=== PATIENT | female | born 1960 | race Caucasian/White ===

== ENCOUNTER 2018-03-09 17:37 | Inpatient (IN) | payer OTHER ==
[~2018-03-09] VITALS: Ht 170.2 cm; Wt 67.4 kg
--- NOTE | 2018-03-09 17:50 | PD ---
HPI Chief Complaint: Psychiatric Symptoms Time Seen by Provider: 17:46 Travel History International Travel<30 days: No Contact w/Intl Traveler<30days: No History of Present Illness HPI 57 YO F presents to the ED under Eli Act for psychiatric evaluation. According to the Eli act paperwork the patient has been taking her medications inconsistently, has been hallucinating and made a suicidal threat. On presentation the patient is calm and cooperative. She denies any suicidal ideation. She denies auditory or visual hallucinations. She endorses compliance with her daily medications. She does state that she was no longer to able to afford Cymbalta and has recently begun taking Zoloft. She endorses psychiatric diagnosis of bipolar disorder.She has never been under Eli act. She states that she has never been admitted to a psychiatric hospital. She denies any previous suicide attempts. From a medical standpoint she has no somatic complaints. She has a history of hypertension, endorses compliance with her medications. She is a current smoker. She denies illicit drug use. She endorses occasional alcohol use. [facility] Social History Tobacco Use: Yes Allergies-Medications (Allergen,Severity, Reaction): Coded Allergies: No Known Allergies (Unverified , 03/09/18) Review of Systems Except as stated in HPI: all other systems reviewed are Neg Physical Exam Narrative GENERAL: Well-nourished, well-developed white female no acute distress. PSYCH: Calm, cooperative. Does not appear to be responding to internal stimuli. SKIN: Focused skin assessment warm/dry. HEAD: Normocephalic. EYES: No scleral icterus. No injection or drainage. NECK: Supple, trachea midline. No JVD or lymphadenopathy. CARDIOVASCULAR: Regular rate and rhythm without murmurs, gallops, or rubs. RESPIRATORY: Breath sounds clear and equal bilaterally. No accessory muscle use. GASTROINTESTINAL: Abdomen soft, non-tender, nondistended. Active bowel sounds. MUSCULOSKELETAL: No cyanosis, or edema. BACK: Nontender without obvious deformity. No CVA tenderness. Data Data Last Documented VS Vital Signs Date Time Temp Pulse Resp B/P (MAP) Pulse Ox O2 Delivery O2 Flow Rate FiO2 03/09/18 19:08 98.2 75 18 140/73 (95) 97 Room Air Orders Orders Complete Blood Count With Diff (03/09/18 17:46) Comprehensive Metabolic Panel (03/09/18 17:46) Thyroid Stimulating Hormone (03/09/18 17:46) Urinalysis - C+S If Indicated (03/09/18 17:46) Psych Screen (03/09/18 17:46) Drug Screen, Random Urine (03/09/18 17:46) Alcohol (Ethanol) (03/09/18 17:46) Act Partial Throm Time (Ptt) (03/09/18 17:53) Prothrombin Time / Inr (Pt) (03/09/18 17:53) Urine Culture (03/09/18 17:35) Nitrofurantoin Monohyd Macrocr (Macrobid (03/09/18 21:00) Labs Laboratory Tests Test 03/09/18 17:35 03/09/18 17:55 Urine Color YELLOW Urine Turbidity CLOUDY Urine pH 5.0 Urine Specific [place] 1.017 Urine Protein 30 mg/dL Urine Glucose (UA) NEG mg/dL Urine Ketones TRACE mg/dL Urine Occult Blood SMALL Urine Nitrite NEG Urine Bilirubin NEG Urine Urobilinogen 2.0 mg/dL Urine Leukocyte Esterase NEG Urine RBC 2 /hpf Urine WBC 9 /hpf Urine WBC Clumps FEW Urine Squamous Epithelial Cells 2 /hpf Urine Bacteria FEW /hpf Urine Hyaline Casts 41 /lpf Urine Mucus MANY /lpf Microscopic Urinalysis Comment CULTURE INDICATED White Blood Count 14.2 TH/MM3 Red Blood Count 5.09 MIL/MM3 Hemoglobin 15.4 GM/DL Hematocrit 45.7 % Mean Corpuscular Volume 89.9 FL Mean Corpuscular Hemoglobin 30.4 PG Mean Corpuscular Hemoglobin Concent 33.8 % Red Cell Distribution Width 13.2 % Platelet Count 283 TH/MM3 Mean Platelet Volume 8.3 FL Neutrophils (%) (Auto) 55.7 % Lymphocytes (%) (Auto) 36.0 % Monocytes (%) (Auto) 7.8 % Eosinophils (%) (Auto) 0.2 % Basophils (%) (Auto) 0.3 % Neutrophils # (Auto) 7.9 TH/MM3 Lymphocytes # (Auto) 5.1 TH/MM3 Monocytes # (Auto) 1.1 TH/MM3 Eosinophils # (Auto) 0.0 TH/MM3 Basophils # (Auto) 0.0 TH/MM3 CBC Comment DIFF FINAL Differential Comment Prothrombin Time 10.5 SEC Prothromb Time International Ratio 1.0 RATIO Activated Partial Thromboplast Time 27.5 SEC Blood Urea Nitrogen 12 MG/DL Creatinine 1.25 MG/DL Random Glucose 115 MG/DL Total Protein 8.5 GM/DL Albumin 4.5 GM/DL Calcium Level 9.3 MG/DL Alkaline Phosphatase 97 U/L Aspartate Amino Transf (AST/SGOT) 21 U/L Alanine Aminotransferase (ALT/SGPT) 23 U/L Total Bilirubin 0.7 MG/DL Sodium Level 139 MEQ/L Potassium Level 3.6 MEQ/L Chloride Level 107 MEQ/L Carbon Dioxide Level 22.9 MEQ/L Anion Gap 9 MEQ/L Estimat Glomerular Filtration Rate 44 ML/MIN Thyroid Stimulating Hormone 3rd Gen 1.460 uIU/ML Ethyl Alcohol Level LESS THAN 3 MG/DL MDM Medical Decision Making Medical Screen Exam Complete: Yes Emergency Medical Condition: Yes Differential Diagnosis Adjustment disorder versus anxiety versus bipolar versus depression versus dementia versus electrolyte disorder versus malingering versus mood disorder versus ODD versus psychosis versus PTSD versus schizophrenia versus schizoaffective disorder versus substance-induced mood disorder versus other Narrative Course 57-year-old female brought in under Extreme DA act for psychiatric evaluation. Patient denies suicidality. Denies any somatic complaints. Vitals reviewed. Physical exam reassuring. CBC, CMP, coags reviewed, no concerning abnormalities. Culture indicated of the UA. Tox screen pending. Patient initiated on Macrobid twice daily and prescribed the same. Patient's medically cleared for psychiatric evaluation. Diagnosis Primary Impression: Urinary tract infection Qualified Codes: N39.0 - Urinary tract infection, site not specified Scripts Nitrofurantoin Monohydrate Macrocrystals (Macrobid) 100 Mg Cap 100 MG PO BID for Infection for 7 Days, #14 CAP 0 Refills Prov: Jose Manuel Marks MD 03/09/18 Fabi Akbar Mar 09, 2018 17:50
[2018-03-09 18:03] LABS: AUTOMATED NEUTROPHIL # 7.9 TH/MM3 (1.8-7.7); BASOPHIL % 0.3 % (0.0-2.0); EOSINOPHIL % 0.2 % (0.0-4.0); HEMATOCRIT 45.7 % (35.0-46.0); HEMOGLOBIN 15.4 GM/DL (11.6-15.3); LYMPHOCYTE # 5.1 TH/MM3 (1.0-4.8); MEAN CELL VOLUME 89.9 FL (80.0-100.0); MEAN CORPUSCULAR HEMOGLOBIN 30.4 PG (27.0-34.0); MEAN CORPUSCULAR HGB CONC 33.8 % (32.0-36.0); MEAN PLATELET VOLUME 8.3 FL (7.0-11.0); MONO % 7.8 % (0.0-8.0); MONOCYTE # 1.1 TH/MM3 (0-0.9); NEUT % 55.7 % (16.0-70.0); PLATELET COUNT 283 TH/MM3 (150-450); RED BLOOD COUNT 5.09 MIL/MM3 (4.00-5.30); RED CELL DISTRIBUTION WIDTH 13.2 % (11.6-17.2); WHITE BLOOD COUNT 14.2 TH/MM3 (4.0-11.0)
[2018-03-09 18:13] LABS: PROTHROMBIN TIME - PATIENT 10.5 SEC (9.8-11.6)
[2018-03-09 18:36] LABS: ALBUMIN 4.5 GM/DL (3.4-5.0); ALT (GPT) 23 U/L (10-53); AST (GOT) 21 U/L (15-37); BICARBONATE 22.9 MEQ/L (21.0-32.0); BLOOD UREA NITROGEN 12 MG/DL (7-18); CALCIUM 9.3 MG/DL (8.5-10.1); CHLORIDE 107 MEQ/L (98-107); CREATININE 1.25 MG/DL (0.50-1.00); GLOMERULAR FILTRATION RATE 44 ML/MIN (>89); GLUCOSE,RANDOM 115 MG/DL (74-106); SODIUM (NA) 139 MEQ/L (136-145)
[2018-03-09 18:46] LABS: ALKALINE PHOSPHATASE 97 U/L (45-117); TOTAL BILIRUBIN ADULT 0.7 MG/DL (0.2-1.0); TOTAL PROTEIN 8.5 GM/DL (6.4-8.2)
[2018-03-09 18:47] LABS: BACTERIA, URINE FEW /hpf; BILIRUBIN, URINE NEG (NEG); BLOOD, URINE SMALL (NEG); GLUCOSE,URINE NEG (NEG); HYALINE CAST, URINE 41 /lpf (RARE); KETONE, URINE TRACE mg/dL (NEG); MUCUS URINE MANY /lpf (OCC); NITRITE,URINE NEG (NEG); SQUAMOUS EPITHELIAL CELL URINE 2 /hpf (0-5); URINE COLOR YELLOW (YELLW/STRAW); URINE LEUKOCYTE ESTERASE NEG (NEG); WHITE BLOOD CELL CLUMPS FEW
[2018-03-09 19:08] VITALS: BP 140/73; PULSE 75; RESP 18; TEMP 98.2; O2SAT 97
[2018-03-09] MEDS ORDERED: MACR100C2 PO (19:09)
[2018-03-09] MEDS ORDERED: ZOLO50TA PO (19:22)
[2018-03-09] MEDS ORDERED: XANA2TAB2 PO (19:22)
[2018-03-09] MEDS ORDERED: PLAV75TA29 PO (19:32)
[2018-03-09] MEDS ORDERED: ATOR40TA16 PO (19:51)
[2018-03-09] MEDS ORDERED: HYDR50TA94 PO (19:51)
[2018-03-09] MEDS ORDERED: AMLO2.5T PO (19:51)
[2018-03-09] MEDS ORDERED: METO25TA3 PO (19:51)
[2018-03-09] MEDS: NITROFURANTOIN MONOHYD MACROCR 100 MG CAP PO SCH (20:44)
[2018-03-09] MEDS ORDERED: LORazepam 2 MG/ML VIAL IM ONE (21:00)
[2018-03-09] MEDS ORDERED: QUEtiapine FUMARATE 25 MG TAB PO ONE (21:00)
[2018-03-09 22:15] VITALS: BP 133/74; PULSE 83; RESP 20; O2SAT 97
[2018-03-10] MEDS ORDERED: ALPRAZolam 1 MG TAB PO ONE (00:45)
[2018-03-10] MEDS ORDERED: LORazepam 2 MG/ML VIAL IM ONE ×2 (00:45→02:15)
[2018-03-10 02:14] VITALS: BP 113/79; PULSE 80; RESP 20; O2SAT 96
[2018-03-10] MEDS ORDERED: ZIPRASIDONE MESYLATE 20 MG VIAL IM ONE (02:45)
[2018-03-10] MEDS ORDERED: LORazepam 2 MG/ML VIAL IV PUSH PRN ×4 (02:45)
[2018-03-10] MEDS ORDERED: FLUMAZENIL 0.5 MG/5 ML VIAL IV PUSH PRN (02:45)
[2018-03-10] MEDS ORDERED: LORazepam 2 MG TAB PO PRN (02:45)
[2018-03-10 06:21] VITALS: PULSE 73; RESP 16; TEMP 98.2; O2SAT 96
[2018-03-10] MEDS ORDERED: LORazepam 2 MG/ML VIAL IM PRN ×2 (10:30)
[2018-03-10] MEDS ORDERED: ACETAMINOPHEN 325 MG TAB PO PRN (10:30)
[2018-03-10] MEDS ORDERED: MAGNESIUM HYDROXIDE SUSP 30 ML CUP PO PRN (10:30)
[2018-03-10] MEDS ORDERED: LORazepam 0.5 MG TAB PO PRN (10:30)
[2018-03-10] MEDS ORDERED: ALUMINUM/MAGNESIUM/SIMETH 30 ML CUP PO PRN (10:30)
[2018-03-10] MEDS ORDERED: LORazepam 1 MG TAB PO PRN (10:30)
[2018-03-10 11:51] VITALS: BP 135/70
[2018-03-10] MEDS: LORazepam 1 MG TAB PO PRN ×2 (12:02→17:29)
[2018-03-10 12:47] VITALS: BP 132/58; PULSE 85; RESP 17; TEMP 97.9; O2SAT 99
[2018-03-10] MEDS: NICOTINE 21 MG/24 HR PATCH T-DERMAL SCH (14:00)
[2018-03-10] MEDS: clonazePAM 0.5 MG TAB PO SCH ×2 (14:19→21:25)
--- NOTE | 2018-03-10 17:24 | HHI.HP ---
Provisional Diagnosis Admission Date Mar 10, 2018 at 10:26 [place] I. Unspecified psychosis, r/o benzodiazepine withdrawal, history of bipolar disorder, cannabis use disorder, benzodiazepine use disorder [place] II. Deferred Certification of Person's Competence To Provide Express and Informed Consent I have personally examined Talisha Gatica , a person being served at [facility] on, Mar 10, 2018 17:14. Express and informed consent means consent voluntarily given in writing, by a competent person, after sufficient explanation and disclosure of the subject matter involved to enable the person to make a knowing and willful decision without any element of force, fraud, deceit, duress, or other form of constraint or coercion. This person is 18 years of age or older, is not now known to be incompetent to consent to treatment with a guardian advocate, and does not have a health care surrogate or proxy currently making medical treatment decisions. I have found this person to be one of the following: [] Competent to provide express and informed consent, as defined above, for voluntary admission to this facility and is competent to provide express and informed consent for treatment. He/she has the consistent capacity to make well reasoned, willful, and knowing decisions concerning his or her medical or mental health treatment. The person fully and consistently understands the purpose of the admission for examination/placement and is fully capable of personally exercising all rights assured [place] Incompetent to provide express and informed consent to voluntary admission, and this is incompetent to provide express and informed consent to treatment. The person must be transferred to involuntary status and a petition for a guardian advocate filed with the Circuit Court. [x] Refusing to provide express and informed consent to voluntary admission but is competent to provide express and informed consent for treatment. The person must be discharged or transferred to involuntary status. Form shall be completed within 24 hours of a person's arrival at the receiving facility and filed in the clinical record of each person: 1. Admitted on a voluntary basis 2. Permitted to provide express and informed consent to his/her own treatment 3. Allowed to transfer from involuntary to voluntary status 4. Prior to permitting a person to consent to his or her own treatment after having been previously found incompetent to consent to treatment. History of Present Illness Capacity: Has Capacity HPI The patient is a 57-year-old woman, domiciled in [place], , unemployed, supported by [facility], with self-reported psychiatric history of bipolar disorder, depression, anxiety, cannabis use disorder, no previous psychiatric hospitalizations, no previous suicidal attempts, she reports that she is on Xanax 2 mg 3 times daily prescribed by PCP, medical history hypertension, who presents to the ED under Eli Act for psychiatric evaluation. According to the Eli act paperwork the patient has been taking her medications inconsistently, has been hallucinating and made a suicidal threat. On presentation the patient is calm and cooperative. She denies any suicidal ideation. She denies auditory or visual hallucinations. She endorses compliance with her daily medications. She does state that she was no longer to able to afford Cymbalta and has recently begun taking Zoloft. She endorses psychiatric diagnosis of bipolar disorder.She has never been under Eli act. She states that she has never been admitted to a psychiatric hospital. She denies any previous suicide attempts. From a medical standpoint she has no somatic complaints. She has a history of hypertension, endorses compliance with her medications. She is a current smoker. She denies illicit drug use. She endorses occasional alcohol use. EMR reviewed. Case discussed with nursing charge. On psychiatric evaluation the patient is guarded, irritable, requesting to be discharged. Once she sees me inside the room she asked "have you seen the news, this place is going to explode, bubbles are coming from the floor to the roof". She is requested to be discharged because she has been seeing people coming in and out of his room "and they want to kill". The patient also reports that the room is dirty "with a lot of bug walking in the wall". The patient seems to be quite distressed, internally stimulated and paranoid. She reports feeling quite anxious and scared. She denies suicidal enemas ideation, denies visual and auditory hallucinations. Patient is visibly responding to internal stimuli and having active visual hallucinations and paranoia. The patient becomes quite agitated and restless requesting to be discharged, no responding to verbal de-escalation techniques and had to be medicated with Zyprexa 10 mg IM in order to calm her down. Review of Systems Constitutional: DENIES: Diaphoretic episodes, Fatigue, Fever, Weight gain, Weight loss, Chills, Dizziness, Change in appetite, Night Sweats Endocrine: DENIES: Abnorml menstrual pattern, Heat/cold intolerance, Polydipsia , Polyuria, Polyphagia Eyes: DENIES: Blurred vision, Diplopia, Eye inflammation, Eye pain, Vision loss , Photosensitivity, Double Vision Ears, nose, mouth, throat: DENIES: Tinnitus, Hearing loss, Vertigo, Nasal discharge, Oral lesions, Throat pain, Hoarseness, Ear Pain, Running Nose, Epistaxis, Sinus Pain, Toothache, Odynophagia Respiratory: DENIES: Apneas, Cough, Snoring, Wheezing, Hemoptysis, Sputum production, Shortness of breath Cardiovascular: DENIES: Chest pain, Palpitations, Syncope, Dyspnea on Exertion , PND, Lower Extremity Edema, Orthopnea, Claudication Gastrointestinal: DENIES: Abdominal pain, Black stools, Bloody stools, Constipation, Diarrhea, Nausea, Vomiting, Difficulty Swallowing, Anorexia Genitourinary: DENIES: Abnormal vaginal bleeding, Dysmenorrhea, Dyspareunia, Sexual dysfunction, Urinary frequency, Urinary incontinence, Urgency, Hematuria , Dysuria, Nocturia, Vaginal discharge Musculoskeletal: DENIES: Joint pain, Muscle aches, Stiffness, Joint Swelling, Back pain, Neck pain Integumentary: DENIES: Abnormal pigmentation, Pruritus, Rash, Nail changes, Breast masses, Breast skin changes, Nipple discharge Hematologic/lymphatic: DENIES: Bruising, Lymphadenopathy Immunologic/allergic: DENIES: Eczema, Urticaria Neurologic: DENIES: Abnormal gait, Headache, Localized weakness, Paresthesias, Seizures, Speech Problems, Tremor, Poor Balance Psychiatric: DENIES: Anxiety, Confusion, Mood changes, Depression, Hallucinations, Agitation, Suicidal Ideation, Homicidal Ideation, Delusions Substance Abuse History Drugs/Alcohol past 12 months The patient reports the use of marijuana Past Family Social History Coded Allergies: No Known Allergies (Unverified , 03/09/18) Active Scripts Nitrofurantoin Monohydrate Macrocrystals (Macrobid) 100 Mg Cap, 100 MG PO BID for Infection for 7 Days, #14 CAP 0 Refills Prov:Jose Manuel Marks MD 03/09/18 Reported Medications Hydroxyzine HCl (Hydroxyzine HCl) 50 Mg Tab, 50 MG PO TID Y for ANXIETY, TAB 0 Refills 03/09/18 Hydroxyzine HCl (Hydroxyzine HCl) 50 Mg Tab, 50 MG PO TID, TAB 0 Refills 03/09/18 Metoprolol Tartrate (Metoprolol Tartrate) 25 Mg Tab, 25 MG PO BID, #60 TAB 0 Refills 03/09/18 Amlodipine (Amlodipine) 2.5 Mg Tab, 2.5 MG PO DAILY for Blood Pressure Management, #30 TAB 0 Refills 03/09/18 Atorvastatin (Atorvastatin) 40 Mg Tab, 40 MG PO DAILY for Cholesterol Management , #30 TAB 0 Refills 03/09/18 Clopidogrel (Plavix) 75 Mg Tab, 75 MG PO DAILY for Blood Clot Prevention, #30 TAB 0 Refills 03/09/18 Sertraline (Zoloft) 50 Mg Tab, 100 MG PO DAILY, #30 TAB 0 Refills 03/09/18 Alprazolam (Xanax) 2 Mg Tab, 2 MG PO BID Y for ANXIETY, TAB 0 Refills 03/09/18 Current Medications Medications (Trade) Dose Ordered Sig/Jerrica Route Start Time Stop Time Status Last Admin (Macrobid) 100 mg BID PO 03/09/18 21:00 03/09/18 20:44 (Romazicon Inj) 0.2 mg Q1M PRN IV PUSH 03/10/18 02:45 (Ativan) 1 mg Q4H PRN PO 03/10/18 02:45 03/10/18 12:02 (Ativan Inj) 1 mg Q4H PRN IV PUSH 03/10/18 02:45 (Ativan) 2 mg Q2H PRN PO 03/10/18 02:45 (Ativan Inj) 2 mg Q2H PRN IV PUSH 03/10/18 02:45 (Ativan Inj) 2 mg Q1H PRN IV PUSH 03/10/18 02:45 (Ativan Inj) 2 mg Q15M PRN IV PUSH 03/10/18 02:45 (Ativan) 1 mg Q6H PRN PO 03/10/18 10:30 (Ativan Inj) 1 mg Q6H PRN IM 03/10/18 10:30 (Tylenol) 650 mg Q4H PRN PO 03/10/18 10:30 (Milk Of Magnesia Liq) 30 ml DAILY PRN PO 03/10/18 10:30 (Mag-Al Plus Susp Liq) 30 ml Q6H PRN PO 03/10/18 10:30 (Habitrol 21 Mg Patch.24 Hr) 1 patch DAILY T-DERMAL 03/10/18 10:30 03/10/18 14:00 (SEROquel) 25 mg BID PO 03/10/18 10:30 (KlonoPIN) 0.5 mg Q8HR PO 03/10/18 14:00 03/10/18 14:19 Miscellaneous Information 1 HS T-DERMAL 03/10/18 21:00 (Pneumovax-23 Inj) 25 mcg ONCE ONCE IM 03/11/18 10:00 03/11/18 10:01 (Flu (Quadrivalent) Vaccine Inj) 0.5 ml ONCE ONCE IM 03/11/18 10:00 03/11/18 10:01 Family Psych History No family psychiatric history Social History The patient was born and raised in [place], domiciled in [place], , unemployed, on SSI Patient's Strengths (min. 2) Verbal communication Physical Exam No tremors, no EPS, no psychomotor agitation retardation Vital Signs Vital Signs Date Time Temp Pulse Resp B/P (MAP) Pulse Ox O2 Delivery O2 Flow Rate FiO2 03/10/18 12:47 97.9 85 17 132/58 (82) 99 03/10/18 11:51 97 03/10/18 06:21 Room Air Lab Results Test 03/09/18 17:35 03/09/18 17:55 Urine Color YELLOW Urine Turbidity CLOUDY Urine pH 5.0 Urine Specific [place] 1.017 Urine Protein 30 mg/dL Urine Glucose (UA) NEG mg/dL Urine Ketones TRACE mg/dL Urine Occult Blood SMALL Urine Nitrite NEG Urine Bilirubin NEG Urine Urobilinogen 2.0 mg/dL Urine Leukocyte Esterase NEG Urine RBC 2 /hpf Urine WBC 9 /hpf Urine WBC Clumps FEW Urine Squamous Epithelial Cells 2 /hpf Urine Bacteria FEW /hpf Urine Hyaline Casts 41 /lpf Urine Mucus MANY /lpf Microscopic Urinalysis Comment CULTURE INDICATED Urine Opiates Screen NEG Urine Barbiturates Screen NEG Urine Amphetamines Screen NEG Urine Benzodiazepines Screen POS Urine Cocaine Screen NEG Urine Cannabinoids Screen POS White Blood Count 14.2 TH/MM3 Red Blood Count 5.09 MIL/MM3 Hemoglobin 15.4 GM/DL Hematocrit 45.7 % Mean Corpuscular Volume 89.9 FL Mean Corpuscular Hemoglobin 30.4 PG Mean Corpuscular Hemoglobin Concent 33.8 % Red Cell Distribution Width 13.2 % Platelet Count 283 TH/MM3 Mean Platelet Volume 8.3 FL Neutrophils (%) (Auto) 55.7 % Lymphocytes (%) (Auto) 36.0 % Monocytes (%) (Auto) 7.8 % Eosinophils (%) (Auto) 0.2 % Basophils (%) (Auto) 0.3 % Neutrophils # (Auto) 7.9 TH/MM3 Lymphocytes # (Auto) 5.1 TH/MM3 Monocytes # (Auto) 1.1 TH/MM3 Eosinophils # (Auto) 0.0 TH/MM3 Basophils # (Auto) 0.0 TH/MM3 CBC Comment DIFF FINAL Differential Comment Prothrombin Time 10.5 SEC Prothromb Time International Ratio 1.0 RATIO Activated Partial Thromboplast Time 27.5 SEC Blood Urea Nitrogen 12 MG/DL Creatinine 1.25 MG/DL Random Glucose 115 MG/DL Total Protein 8.5 GM/DL Albumin 4.5 GM/DL Calcium Level 9.3 MG/DL Alkaline Phosphatase 97 U/L Aspartate Amino Transf (AST/SGOT) 21 U/L Alanine Aminotransferase (ALT/SGPT) 23 U/L Total Bilirubin 0.7 MG/DL Sodium Level 139 MEQ/L Potassium Level 3.6 MEQ/L Chloride Level 107 MEQ/L Carbon Dioxide Level 22.9 MEQ/L Anion Gap 9 MEQ/L Estimat Glomerular Filtration Rate 44 ML/MIN Thyroid Stimulating Hormone 3rd Gen 1.460 uIU/ML Ethyl Alcohol Level LESS THAN 3 MG/DL Date/Time Source Procedure Growth Status 03/09/18 17:35 Urine Clean Catch Urine Culture - Preliminary No growth. Resulted Mental Status Examination Appearance: Appropriate Consciousness: Alert Orientation: x4 Motor Activity: Normal gait Speech: Unremarkable Language: Adequate Fund of Knowledge: Adequate Attention and Concentration: Adequate Memory: Unremarkable Mood: Angry Affect: Irritable Thought Process & Associations: Intact Thought Content: Appropriate Hallucination Type: Auditory, Visual Delusion Type: Bizarre, Paranoid Suicidal Ideation: No Suicidal Plan: No Suicidal Intention: No Homicidal Ideation: No Homicidal Plan: No Homicidal Intention: No Insight: Poor Judgment: Poor Assessment & Plan Problem List: (1) Unspecified psychosis ICD Codes: F29 - Unspecified psychosis not due to a substance or known physiological condition Assessment & Plan: Patient is acutely psychotic, with active visual hallucinations, paranoia agitation reality distortion. 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 We will order EKG for QTC based Clonazepam 0.5 mg 3 times daily for anxiety potential benzodiazepine withdrawal Seroquel 25 mg twice daily for psychosis [facility] protocol Assessment & Plan Estimated LOS: days Jorge Alberto Cohen MD Mar 10, 2018 17:24
[2018-03-10] MEDS ORDERED: PILL SPLITTER OTHER PRN (17:45)
[2018-03-10 19:00] VITALS: BP 122/74; PULSE 82; RESP 18; TEMP 98.7; O2SAT 99
[2018-03-10] MEDS: METOPROLOL TARTRATE 25 MG TAB PO SCH (20:16)
[2018-03-10] MEDS: QUEtiapine FUMARATE 25 MG TAB PO SCH (20:17)
[2018-03-10] MEDS: NITROFURANTOIN MONOHYD MACROCR 100 MG CAP PO SCH (20:19)
[2018-03-10] MEDS: REMOVE OLD NICODERM (NICOTINE) PATCH T-DERMAL SCH (20:53)
[2018-03-11] MEDS: clonazePAM 0.5 MG TAB PO SCH ×3 (05:18→21:16)
[2018-03-11 06:09] VITALS: BP 142/77; PULSE 88; RESP 18; TEMP 98.6; O2SAT 100
[2018-03-11 08:01] LABS: BICARBONATE 26.3 MEQ/L (21.0-32.0); BLOOD UREA NITROGEN 15 MG/DL (7-18); CALCIUM 8.5 MG/DL (8.5-10.1); CHLORIDE 108 MEQ/L (98-107); CHOLESTEROL 124 MG/DL (120-200); CHOLESTEROL/ HDL RATIO 3.11 RATIO; CREATININE 0.86 MG/DL (0.50-1.00); GLOMERULAR FILTRATION RATE 68 ML/MIN (>89); GLUCOSE,RANDOM 101 MG/DL (74-106); HDL CHOLESTEROL 39.8 MG/DL (40.0-60.0); LDL CHOLESTEROL 70 MG/DL (0-99); SODIUM (NA) 141 MEQ/L (136-145); TRIGLYCERIDES 70 MG/DL (42-150)
[2018-03-11] MEDS: METOPROLOL TARTRATE 25 MG TAB PO SCH ×2 (08:35→21:16)
[2018-03-11] MEDS: amLODIPine BESYLATE 5 MG TAB PO SCH (08:35)
[2018-03-11] MEDS: QUEtiapine FUMARATE 25 MG TAB PO SCH ×2 (08:36→21:17)
[2018-03-11] MEDS: ATORVASTATIN 40 MG TAB PO SCH (08:36)
[2018-03-11] MEDS: NITROFURANTOIN MONOHYD MACROCR 100 MG CAP PO SCH ×2 (08:36→21:16)
[2018-03-11] MEDS: NICOTINE 21 MG/24 HR PATCH T-DERMAL SCH (08:38)
[2018-03-11] MEDS ORDERED: hydrOXYzine HCL 50 MG TAB PO PRN (08:45)
--- NOTE | 2018-03-11 08:58 | HHI.PYPN ---
Subjective Remarks Patient seen and screened in the ED and toxicology positive for benzodiazepines and marijuana. Dr. Andersen's initially admitted patient 57-year-old lady comes for under a Eli act by the [place] [employer] dated 2017 1645 hrs. that document reviewed initially stated that please requested to come to the home by patient's daughter daughter advised that her mother has been taking her medications properly and for the past 2 days she has been hallucinating upon speaking with Gatica she appeared excited and confused she started to take Xanax today but minutes later stated she did not she believes she went to a doctor today to have the daughter said she did int not. She believes she saw her son up in her home this morning though her son is out of state patient was initially admitted by Dr. Andersen's H&P in the chart for [place]'s O. Dr. Andersen is done first opinion petition supporting Eli act I agree with him patient meets criteria for further assessment and evaluation of the Eli act thus I will cosign second opinion petition. Patient seen by me in her room with nurse Claudine. Patient is calm cooperative says she is moved down here from [place] within the past year she has been anxious about the fact that her granddaughter's father who she does not like would be visiting over her granddaughter's birthday in March. Patient has been on Xanax 2 mg 3 times daily for an extended period of time is been off his mouth for about 2 weeks. Today she denies any voices or visions denies any suicidality or homicidality. She denies any prior psychiatric contact hospitalization her psychotropic medications except the Xanax that she stopped taking though the med reconciliation so she is also been taking Zoloft. Besides a medical medicatio Dr. Andersen started patient on the ciwa protocol, and started Klonopin 0.5 mg every 8 hours. His of tomorrow will decrease the Klonopin to twice daily. Continue the [place] protocol. Though patient is also placed on Seroquel. We will continue that. Hope this to be quite short stay and can fill the patient's mental health in the community while refrain from the use of benzodiazepines Review of Systems Except as stated in HPI: all other systems reviewed are Neg Mental Status Examination Appearance: Appropriate Consciousness: Alert Orientation: x4 Motor Activity: Normal gait Speech: Unremarkable Language: Adequate Fund of Knowledge: Adequate Attention and Concentration: Adequate Memory: Impaired Mood: Other (Euthymic to mildly dysphoric) Affect: Other (Slight increased range and intensity) Thought Process & Associations: Intact Thought Content: Appropriate Hallucination Type: None Delusion Type: None Suicidal Ideation: No Suicidal Plan: No Suicidal Intention: No Homicidal Ideation: No Homicidal Plan: No Homicidal Intention: No Insight: Adequate Judgment: Adequate Results Labs Test 03/11/18 06:58 Blood Urea Nitrogen 15 MG/DL Creatinine 0.86 MG/DL Random Glucose 101 MG/DL Calcium Level 8.5 MG/DL Sodium Level 141 MEQ/L Potassium Level 3.9 MEQ/L Chloride Level 108 MEQ/L Carbon Dioxide Level 26.3 MEQ/L Anion Gap 7 MEQ/L Estimat Glomerular Filtration Rate 68 ML/MIN Triglycerides Level 70 MG/DL Cholesterol Level 124 MG/DL LDL Cholesterol 70 MG/DL HDL Cholesterol 39.8 MG/DL Cholesterol/HDL Ratio 3.11 RATIO Date/Time Source Procedure Growth Status 03/09/18 17:35 Urine Clean Catch Urine Culture - Preliminary No growth. Resulted Vitals/IOs Vital Signs Date Time Temp Pulse Resp B/P (MAP) Pulse Ox O2 Delivery O2 Flow Rate FiO2 03/11/18 06:09 98.6 88 18 142/77 (98) 100 03/10/18 11:51 97 03/10/18 06:21 Room Air Assessment & Plan Problem List: (1) BRIEF PSYCHOTIC DISORDER ICD Codes: F23 - BRIEF PSYCHOTIC DISORDER Assessment & Plan Estimated LOS: 2-3 days and appears patient psychotic episode is tapering will need further observation will 24-48 hours we will attempt also to taper off the benzodiazepines. Continue the Zoloft and Seroquel after discharge Justification for Cont. Inpt. At this time patient would decompensate a place to a lower level of care Discharge Planning To be determined probable return home Adis Huitron MD Mar 11, 2018 08:58
[2018-03-11] MEDS: SERTRALINE HCL 100 MG TAB PO SCH (09:23)
[2018-03-11] MEDS: CLOPIDOGREL 75 MG TAB PO SCH (09:23)
[2018-03-11] MEDS ORDERED: PNEUMOCOCCAL POLYVALENT INJ 25 MCG/0.5 ML SYR IM ONE (10:00)
[2018-03-11] MEDS ORDERED: INFLUENZA VIRUS VACCINE (QUADRIVALENT) 0.5 ML SYR IM ONE (10:00)
[2018-03-11 11:26] LABS: HEMOGLOBIN A1C 5.7 % (4.3-6.0)
--- NOTE | 2018-03-11 16:49 | EKG ---
Date Performed: 03/10/2018 Time Performed: 18:49:13 PTAGE: 57 years EKG: Sinus rhythm POSSIBLE LEFT ATRIAL ENLARGEMENT BORDERLINE ECG NO PREVIOUS TRACING DOCTOR: Quinten Cordova Interpretating Date/Time 03/11/2018 16:45:48
[2018-03-11 18:25] VITALS: BP 124/58; PULSE 68; RESP 16; TEMP 97.7; O2SAT 98
[2018-03-11] MEDS: REMOVE OLD NICODERM (NICOTINE) PATCH T-DERMAL SCH (21:00)
[2018-03-12 05:48] VITALS: BP 142/71; PULSE 50; RESP 16; TEMP 98.5; O2SAT 100
[2018-03-12] MEDS: ATORVASTATIN 40 MG TAB PO SCH (08:28)
[2018-03-12] MEDS: NITROFURANTOIN MONOHYD MACROCR 100 MG CAP PO SCH ×2 (08:28→20:52)
[2018-03-12] MEDS: QUEtiapine FUMARATE 25 MG TAB PO SCH ×2 (08:28→20:52)
[2018-03-12] MEDS: SERTRALINE HCL 100 MG TAB PO SCH (08:28)
[2018-03-12] MEDS: NICOTINE 21 MG/24 HR PATCH T-DERMAL SCH (08:29)
[2018-03-12] MEDS: METOPROLOL TARTRATE 25 MG TAB PO SCH ×2 (08:29→20:52)
[2018-03-12] MEDS: amLODIPine BESYLATE 5 MG TAB PO SCH (08:29)
[2018-03-12] MEDS: CLOPIDOGREL 75 MG TAB PO SCH (08:29)
[2018-03-12] MEDS ORDERED: clonazePAM 0.5 MG TAB PO SCH ×2 (09:00→21:00)
--- NOTE | 2018-03-12 12:53 | HHI.PYPN ---
Subjective Remarks Patient seen today in her room with nurse Caty, chart reviewed, patient complaint medications. Patient is feeling better today she denies suicidality homicidality voices or visions. He is compliant with the medication. Feels she is thinking clearer and better now that she is offered Xanax. We will decrease Klonopin to at bedtime only 1 days and discontinue Saturday Review of Systems Except as stated in HPI: all other systems reviewed are Neg Mental Status Examination Appearance: Appropriate Consciousness: Alert Orientation: x4 Motor Activity: Normal gait Speech: Unremarkable Language: Adequate Fund of Knowledge: Adequate Attention and Concentration: Adequate Memory: Unremarkable Mood: Angry Affect: Irritable Thought Process & Associations: Intact Thought Content: Appropriate Hallucination Type: Auditory, Visual Delusion Type: Bizarre, Paranoid Suicidal Ideation: No Suicidal Plan: No Suicidal Intention: No Homicidal Ideation: No Homicidal Plan: No Homicidal Intention: No Insight: Poor Judgment: Poor Results Labs Date/Time Source Procedure Growth Status 03/09/18 17:35 Urine Clean Catch Urine Culture - Final 10-50,000 CFU/ML MIXED GRAM POSITIVE ... Complete Vitals/IOs Vital Signs Date Time Temp Pulse Resp B/P (MAP) Pulse Ox O2 Delivery O2 Flow Rate FiO2 03/12/18 05:48 98.5 50 16 142/71 (94) 100 03/10/18 11:51 97 03/10/18 06:21 Room Air Assessment & Plan Problem List: (1) BRIEF PSYCHOTIC DISORDER ICD Codes: F23 - BRIEF PSYCHOTIC DISORDER Assessment & Plan Estimated LOS: days patient's calmer more appropriate and focused, denying suicidality homicidality voice or visions, is been no behavior problems. Patient has been scheduled for [facility] tomorrow at this time patient has capacity to sign voluntary will lift Eli act allow patient to sign voluntary Justification for Cont. Inpt. At this time patient would decompensate a place to a lower level of care Discharge Planning To be determined Adis Huitron MD Mar 12, 2018 12:52
[2018-03-12 15:31] VITALS: BP 133/74; PULSE 69; RESP 18; TEMP 98.1; O2SAT 100
[2018-03-12] MEDS: REMOVE OLD NICODERM (NICOTINE) PATCH T-DERMAL SCH (20:51)
[2018-03-13 05:58] VITALS: BP 155/65; PULSE 74; RESP 16; TEMP 98.2; O2SAT 96
[2018-03-13] MEDS: NICOTINE 21 MG/24 HR PATCH T-DERMAL SCH (09:00)
[2018-03-13] MEDS: NITROFURANTOIN MONOHYD MACROCR 100 MG CAP PO SCH (09:17)
[2018-03-13] MEDS: METOPROLOL TARTRATE 25 MG TAB PO SCH (09:17)
[2018-03-13] MEDS: ATORVASTATIN 40 MG TAB PO SCH (09:17)
[2018-03-13] MEDS: amLODIPine BESYLATE 5 MG TAB PO SCH (09:17)
[2018-03-13] MEDS: CLOPIDOGREL 75 MG TAB PO SCH (09:18)
[2018-03-13] MEDS: QUEtiapine FUMARATE 25 MG TAB PO SCH (09:18)
[2018-03-13] MEDS: SERTRALINE HCL 100 MG TAB PO SCH (09:18)
[2018-03-13] MEDS: LORazepam 1 MG TAB PO PRN (10:07)
[2018-03-13] MEDS ORDERED: SERO25TA PO (16:27)
[2018-03-13] MEDS ORDERED: ATOR40TA16 PO (16:27)
[2018-03-13] MEDS ORDERED: ZOLO100T PO (16:27)
[2018-03-13] MEDS ORDERED: MACR100C2 PO (16:27)
[2018-03-13] MEDS ORDERED: AMLO2.5T PO (16:27)
[2018-03-13] MEDS ORDERED: METO25TA3 PO (16:27)
[2018-03-13] MEDS ORDERED: PLAV75TA29 PO (16:27)
--- NOTE | 2018-03-13 16:30 | HHI.DS ---
Psychiatry Discharge Summary Inpatient Psychiatric care?: Yes Advance Directive: Yes Reason Not Provided: Due to Patient Condition Mental Health AdvanceDirective: No Health Care Proxy: No Admission Admission Date Mar 10, 2018 at 10:26 Admission Diagnosis: (1) BRIEF PSYCHOTIC DISORDER ICD Code: F23 - BRIEF PSYCHOTIC DISORDER Brief History The patient is a 57-year-old woman, domiciled in [place], , unemployed, supported by [facility], with self-reported psychiatric history of bipolar disorder, depression, anxiety, cannabis use disorder, no previous psychiatric hospitalizations, no previous suicidal attempts, she reports that she is on Xanax 2 mg 3 times daily prescribed by PCP, medical history hypertension, who presents to the ED under [employer] for psychiatric evaluation. According to the [employer] act paperwork the patient has been taking her medications inconsistently, has been hallucinating and made a suicidal threat. On presentation the patient is calm and cooperative. She denies any suicidal ideation. She denies auditory or visual hallucinations. She endorses compliance with her daily medications. She does state that she was no longer to able to afford Cymbalta and has recently begun taking Zoloft. She endorses psychiatric diagnosis of bipolar disorder.She has never been under [employer] act. She states that she has never been admitted to a psychiatric hospital. She denies any previous suicide attempts. From a medical standpoint she has no somatic complaints. She has a history of hypertension, endorses compliance with her medications. She is a current smoker. She denies illicit drug use. She endorses occasional alcohol use. EMR reviewed. Case discussed with nursing charge. On psychiatric evaluation the patient is guarded, irritable, requesting to be discharged. Once she sees me inside the room she asked "have you seen the news, this place is going to explode, bubbles are coming from the floor to the roof". She is requested to be discharged because she has been seeing people coming in and out of his room "and they want to kill". The patient also reports that the room is dirty "with a lot of bug walking in the wall". The patient seems to be quite distressed, internally stimulated and paranoid. She reports feeling quite anxious and scared. She denies suicidal enemas ideation, denies visual and auditory hallucinations. Patient is visibly responding to internal stimuli and having active visual hallucinations and paranoia. The patient becomes quite agitated and restless requesting to be discharged, no responding to verbal de-escalation techniques and had to be medicated with Zyprexa 10 mg IM in order to calm her down. Tobacco Use In Past 30 Days: 5 or More Cigarettes/Day Alcohol Use: Monthly or Less Hospital Course Patient's hospital course was uneventful she showed compliance with medication and milieu from day 1. She was able to acknowledge her misuse of opiates/ benzodiazepines. We will desire to get off of them. She is tolerating the medication without difficulty she is sleeping better appetite is better she is thinking somewhat clearer. At this time she denies suicidality homicidality voices or visions. She does wish to be discharged today for some visiting from out of state. The stomach feel she is reached maximum benefit of this hospitalization thus patient will be discharged today to herself with Rx 1 month. No benzodiazepines or opiates will follow up with Marek meier. Also recommending absolute sobriety Results Blood Pressure 155 / 65 Vital Signs Date Time Temp Pulse Resp B/P (MAP) Pulse Ox O2 Delivery O2 Flow Rate FiO2 03/13/18 05:58 98.2 74 16 155/65 (95) 96 03/10/18 11:51 97 03/10/18 06:21 Room Air Laboratory Tests Test 03/11/18 06:58 Chloride Level 108 MEQ/L (98-107) Estimat Glomerular Filtration Rate 68 ML/MIN (>89) HDL Cholesterol 39.8 MG/DL (40.0-60.0) Laboratory Results Test 03/11/18 06:58 Cholesterol Level 124 MG/DL (120-200) HDL Cholesterol 39.8 MG/DL (40.0-60.0) Hemoglobin A1c 5.7 % (4.3-6.0) LDL Cholesterol 70 MG/DL (0-99) Triglycerides Level 70 MG/DL (42-150) Summary of Procedures None done Pending results at discharge: No Medications # of Antipsychotic meds at D/C: 1 Approp Antipsych med options 1 - Minimum of three failed multiple trials of monotherapy. 2 - Documented plan to taper to monotherapy due to previous use of multiple meds OR cross-taper in progress at D/C. 3 - Documentation of augmentation of Clozapine. 4 - Justification other than those listed in allowable values 1-3, document here : Discharge Discharge Date: Mar 13, 2018 Discharge Diagnosis: (1) BRIEF PSYCHOTIC DISORDER Diagnosis: Principal ICD Code: F23 - BRIEF PSYCHOTIC DISORDER Pt Condition on Discharge: Stable Discharge Disposition: Discharge Home Discharge Instructions Diet Instructions: As Tolerated, No Restrictions Activities you can perform: Regular-No Restrictions Scheduled Appointment: Marek Barragan Valeria Appointment Date: Mar 14, 2018 Appointment Time: 8:00-3:00 Discharge Time > 30 minutes Mental Status Examination Appearance: Appropriate Consciousness: Alert Orientation: x4 Motor Activity: Normal gait Speech: Unremarkable Language: Adequate Fund of Knowledge: Adequate Attention and Concentration: Adequate Memory: Unremarkable Mood: Angry Affect: Irritable Thought Process & Associations: Intact Thought Content: Appropriate Hallucination Type: Auditory, Visual Delusion Type: Bizarre, Paranoid Suicidal Ideation: No Suicidal Plan: No Suicidal Intention: No Homicidal Ideation: No Homicidal Plan: No Homicidal Intention: No Insight: Poor Judgment: Poor Discharge/Advance Care Plan Health Problems: (1) BRIEF PSYCHOTIC DISORDER Goals to promote your health * To prevent worsening of your condition and complications * To maintain your health at the optimal level Directions to meet your goals Take your medications as prescribed Follow your dietary instruction Follow activity as directed Keep your appointments as scheduled Take your immunizations and boosters as scheduled If your symptoms worsen call your PCP, if no PCP go to Urgent Care Center or Emergency Room For 15/04 questions related to your inpatient stay or results of tests pending at discharge, please contact Dr. Adis Huitron at Smoking is Dangerous to Your Health. Avoid second hand smoking Adis Huitron MD Mar 13, 2018 16:30
== END 2018-03-13 18:15 | disposition home or self-care (01) | DRG 885 ==
LOC: NEPJ 17:37 → NEDA 03-10 10:26 → H270 03-10 12:10 → H260 03-11 13:10
PROVIDERS: ADMIT Psychiatry & Neurology Psychiatry; ATTEND Psychiatry & Neurology Psychiatry
DX: F23 Brief psychotic disorder (principal); N39.0 Urinary tract infection, site not specified; I10 Essential (primary) hypertension; F31.9 Bipolar disorder, unspecified; F12.90 Cannabis use, unspecified, uncomplicated; F17.200 Nicotine dependence, unspecified, uncomplicated; F41.9 Anxiety disorder, unspecified; Z91.14 Patient's other noncompliance with medication regimen
CPT/HCPCS: 80048; 80053; 80061; 80307; 81001; 83036; 84443; 85025; 85610; 85730; 87086; 93005; 96372; J2060; J3486